=== PATIENT | male | born 1990 | race Caucasian/White ===

== ENCOUNTER 2017-05-21 16:39 | Emergency (ER) | payer SELFPAY ==
--- NOTE | 2017-05-22 02:19 | ED NURSING NOTES ---
Clinical Report - Nurses [facility] [address] [place] [address] 05/21/2017 16:38 [id number] Triage time 16:45 May 21 2017. Acuity: LEVEL 3. Chief Complaint: BIZARRE BEHAVIOR. Alert. [place] COMA SCORE: [place] Coma Scale: 15- eyes open spontaneously (4); best verbal response- oriented x 4 (5); best motor response- obeys commands (6). --17:15 Tim Good R.N. 16:45 05/21/17. BP: 136/73. HR: 124. RR: 28. O2 saturation: 97% on room air. Temp: 97.7 F. Pain level now unable to obtain due to patient condition. --17:15 Tim Good R.N. Weight: 86.1 kg estimated. Height/Length: 70 inches Estimated. BMI: 27.2. --17:14 Tim Good R.N. Medication/allergy information source: the patient. --17:15 Tim Good R.N. History ( Confusion and Agitation. Found by police walking along the [place]. Pt able to make verbal requests but is wildly gesticulating with his upper extremities. Both legs and lower arms are badly scratched by blackberry thorns. Police thought that he might have heat exhaustion.). Onset: today. He has had anxiety and has been confused. Has been feeling agitated. Treatment PROGRAM SUPPORT SPECIALIST: (Arrives in 4-point restraints by EMS). PAST MEDICAL HX: Psychiatric illness. Immunizations: status is unknown. SOCIAL HX: Smoker- current status unknown. No infectious disease exposure. FALL RISK ASSESSMENT: Fall risk assessment completed. No fall risk identified. NUTRITIONAL RISK ASSESSMENT: The nutritional risk assessment revealed no deficiencies. FUNCTIONAL ASSESSMENT: Functional assessment: no impairments noted. LEARNING NEEDS ASSESSMENT: The learning needs assessment revealed no barriers. SKIN INTEGRITY ASSESSMENT: Skin integrity risk assessment completed. No skin integrity risk identified. --17:15 Tim Good R.N. Interventions ID band on patient. To room. --17:15 Tim Good R.N. PHYSICAL ASSESSMENT To room via stretcher. GENERAL / NEURO / PSYCH: Alert. Patient's mood/affect appears angry. Behavior appears abnormal, including paranoid behaviors. He appears to have altered thought processes. Appears anxious, restless and agitated. Patient appears agitated. Patient appears unkempt. RESPIRATORY: Respirations not labored. CVS: Cardiac rhythm: sinus tachycardia. SKIN: Skin intact. Skin is warm and dry. Skin color is within normal limits. --17:17 Tim Good R.N. NURSING PROGRESS NOTES Blood samples drawn by lab. Reassurance given to the patient. Call light placed in reach. --17:18 Tim Good R.N. 17:15 05/21/17. ( CODE LABOY CALLED to keep pt in his room). --17:32 Tim Good R.N. <<STRICKEN ENTRY-- 17:17. ( Pt lock in his room. Hazrds removed). --17:33 Tim Good R.N. --END STRIKE>> Correction --17:33 Tim Good R.N. 1717. ( Pt locked in his room. Hazards removed). --17:34 Tim Good R.N. Care transferred and report received (from Tim Mosqueda, RN). --19:08 Nimo Gabriel R.N. 19:07 Tim PEREZ reports that pt has been in ed for a couple of hrs has had at least 5 cups of water and been reminded several times to provide urine sample, that we probably need to put pt in 4 points and obtain urine with a in and out cath. Went to talk to pt - 2 RN's and security standing by, and again reminded pt of the need for a sample - pt told me he could not do it in the room with the camera, informed him to steam and power superintendent the corner under the camera and that we would turn off the lights which we did. patient left in room. --20:11 Tim Ellis R.N. 19:15 Patient attempted to use urinal in 16 - no urine obtained, Informed Dr. Dasilva and asked if she was ok with pt going to the restroom, she agreed as long we stay with the patient and know we are getting a good sample. --20:14 Tim Ellis R.N. 19:32 Escorted patient to restroom with 3 RN's for patient to collect urine sample, I stood by in restroom - patient sat on toilet and pulled at his penis numerous times when asked what he was doing he stated " I need to get the ticks out ". Patient had a BM and with repeated reminders stood up and urinated into a urinal. --19:56 Tim Ellis R.N. 19:42 Patient escorted back to Room 16 door locked. --20:01 Tim Ellis R.N. 20:42. ( Patient was given juice, water, and snack. Patient appears confused, paranoid and agitated. He has flight of thought and is talking about bugs and bodies. Patient continues to decline providing his name and date because he states "they always call the police. I don't want anyone to assume anything about me and I'm done with the DOC."). --20:50 Nimo Gabriel R.N. ( patient pacing in room and talking to self. appears restless and confused.). --20:51 Nimo Gabriel R.N. 21:33. GENERAL / NEURO / PSYCH: The patient reports restlessness. The patient is disoriented. Patient appears agitated. RESPIRATORY: No respiratory distress. SKIN: Skin is warm and dry. Skin color within normal limits. ( patient given juice, water and blankets.). --22:09 Nimo Gabriel R.N. 21:37 05/21/17. HR: 114. RR: 24. O2 saturation: 100% on room air. Pain level now: 0/10. --22:10 Nimo Gabriel R.N. 00:06 05/22/17. GENERAL / NEURO / PSYCH: The patient reports restlessness. The patient is disoriented. RESPIRATORY: No respiratory distress. SKIN: Skin is warm and dry. Skin color within normal limits. ( patient given water.). --00:06 Nimo Gabriel R.N. GENERAL / NEURO / PSYCH: The patient reports restlessness. The patient is disoriented. RESPIRATORY: No respiratory distress. SKIN: Skin color within normal limits. ( Patient is asking if his family has left already. Patient's family has not been here during his stay, but patient reports he was talking to his "brotherHusam, a few minutes ago"). --01:26 Nimo Gabriel R.N. 02:12. ( Patient banging head against window in room. This RN called for help. Patient stopped banging head against wall once PD and staff arrived. This RN went to help another patient at that time, while staff and PD remained outside pt's room.). --06:58 Nimo Gabriel R.N. late entry - 22:26. GENERAL / NEURO / PSYCH: The patient reports restlessness. The patient is disoriented. RESPIRATORY: No respiratory distress. SKIN: Skin color within normal limits. ( patient given water). --01:38 Nimo Gabriel R.N. DISPOSITION / DISCHARGE 02:36. The patient was discharged by the physician. He was accompanied by a police escort. He left the Emergency Department via police department vehicle. --07:14 Nimo Gabriel R.N. 06:58 05/22/17. BP: unable to obtain due to patient condition. HR: unable to obtain due to patient condition. RR: unable to obtain due to patient condition. O2 saturation: unable to obtain due to patient condition. Temp: unable to obtain due to patient condition. Pain level now unable to obtain due to patient condition. --07:14 Nimo Gabriel R.N. Locked/Released at 05/22/2017 7:14 by Nimo Gabriel R.N.
--- NOTE | 2017-05-22 02:19 | ED ORDER SUMMARY ---
..... Patient: DAYAN SEVERINO OrderSheet [facility] VisitID: [id number] [place] [address] 26y, M Registration Date/Time: 05/21/2017 ORDER SHEET Weight: 86.1 kg (estimated) Allergies: GENERAL ORDERS: CBC w Diff Urgent (16:53 05/21/2017 Thiago WESTON) (Ack 16:54 MIGUELANGELoecheryl) (17:17 MIGUELANGELoerner) CMP Urgent (16:53 05/21/2017 Thiago WESTON) (Ack 16:54 Hannah) (17:17 MIGUELANGELoerner) TSH Urgent (16:53 05/21/2017 Thiago WESTON) (Ack 16:54 MIGUELANGELoezandraner) (17:17 MIGUELANGELoerner) Ethyl Alcohol Urgent (16:53 05/21/2017 Thiago WESTON) (Ack 16:54 MIGUELANGELoerner) (17:17 MIGUELANGELoerner) Urine Drug Screen Urgent (16:53 05/21/2017 Thiago WESTON) (Ack 16:54 Hannah) (20:14 FunmiQujodiy R.N.) MEDICATION ORDERS: IV FLUIDS: ORDER SHEET NOTES: [Electronically signed by Carlos Oneil Dr. (02:43 05/22/2017)] [Electronically signed by Nimo Gabriel R.N. (07:14 05/22/2017)] [Electronically locked/signed by Nimo Gabriel R.N. (07:14 05/22/2017)]
--- NOTE | 2017-05-22 02:19 | ED CLINICAL REPORT ---
Clinical Report - Physicians/Mid Levels [facility] [address] [place] [address] 05/21/2017 16:38 Patient: DAYAN SEVERINO Time Seen: 16:46. Arrived- By ambulance. Not in custody. Historian- patient and EMS personnel. History limited by psychosis. Physical Exam limited by psychosis. HISTORY OF PRESENT ILLNESS Chief Complaint: AGITATED and PARANOID. This started unknown duration; medics were called as patient was wandering around the streets acting bizarrely and agitated. The patient was found wandering. Has been paranoid but eating or sleeping and not been depressed. No anxiety, anger, unusual behavior, delusions or suicidal thoughts. No self-injury inflicted or hallucinations. The symptoms are described as moderate. Location- (patient has sustained scratches all over his extremities and forehead, but cannot say how or why). Similar symptoms previously: None. Recent medical care: Not recently seen/assessed. REVIEW OF SYSTEMS No headache, dizziness, weakness, chest pain or palpitations. No abdominal pain, vomiting, diarrhea, black stools or numbness. No fever, sore throat, cough, difficulty breathing or urinary frequency. No skin rash, enlarged lymph nodes, joint pain or laceration. All systems otherwise negative, except as recorded above. PAST HISTORY ( Psychiatric illness). SOCIAL HISTORY Smoker - current status unknown. ADDITIONAL NOTES The nursing notes have been reviewed. PHYSICAL EXAM Vital Signs: 05/21/2017 16:45 BP: 136/73. HR: 124. RR: 28. O2 saturation: 97%. Temp: 97.7 F. Have been reviewed. Blood pressure normal. Tachycardic. Tachypneic. Temperature normal. Oxygen saturation normal. Appearance: Alert. No acute distress. Is disheveled and has poor hygiene. (Patient is agitated and is fixated on the one-way glass window in his room. He states "I don't want to say too much" when I ask him questions). Eyes: Pupils equal, round and reactive to light. Neck: Normal inspection. CVS: Normal heart rate and rhythm. Heart sounds normal. Respiratory: Breath sounds normal. Chest nontender. Abdomen: Soft and nontender. Back: No tenderness. Skin: Skin warm and dry. Normal skin color. Normal skin turgor. Extremities: Extremities exhibit normal ROM. No lower extremity edema. Psych / Neuro: The patient seems unconcerned about his current condition. Cranial nerves normal (as tested). No cerebellar findings. No motor deficit. No sensory deficit. (Patient is agitated and reluctant to answer questions.). LABS, X-RAYS, AND EKG Laboratory Tests: CBC w Diff: (GREGG: 05/21/2017 17:00) ( [facility] 17:16) Final results Test Result Flag Units (Reference) WHITE BLOOD COUNT 7.8 K/uL (4.5-11.5) RED BLOOD COUNT 4.39 L M/uL (4.50-5.90) HEMOGLOBIN 13.5 gm/dL (13.5-17.5) HEMATOCRIT 39.4 L % (41.0-53.0) MEAN CELL VOLUME 90 fL (80-100) MEAN CORPUSCULAR HGB 31 pg (26-34) MEAN CORPUSCULAR HGB CONC 34 g/dL (31-37) RED CELL DISTRIBUTION WIDTH 13.0 % (11.6-14.8) PLATELET COUNT 230 K/uL (150-400) NEUTROPHIL % 73.3 % (50-75) LYMPH % 16.5 L % (25-40) MONO % 9.8 % (3-14) EOSINOPHIL % 0.1 % (0-4) BASOPHIL % 0.3 % (0-2) Urine Drug Screen: (GREGG: 05/21/2017 19:40) ( [facility] 05/21/2017 20:10) Final results Test Result Flag Units (Reference) AMPHETAMINE/METHAMPHETAMINE POSITIVE H (NEGATIVE) BARBITURATE NEGATIVE (NEGATIVE) BENZODIAZEPINE NEGATIVE (NEGATIVE) CANNABINOID POSITIVE H (NEGATIVE) COCAINE NEGATIVE (NEGATIVE) ECSTASY POSITIVE H (NEGATIVE) METHADONE NEGATIVE (NEGATIVE) OPIATE NEGATIVE (NEGATIVE) The urine drug screen is a qualitative screening test fordrug overdose and abuse. All screen results should beconsidered as presumptive.Drugs screened for are as follows:BenzodiazepinesCocaineAmphetamines/MetamphetaminesTHC (Tetrahydrocannabinol)OpiatesBarbituratesEcstasyMethadonePositive results are unconfirmed. For confirmation, notifythe lab for the specimen to be sent to the reference lab.All confirmations must be performed by a differentmethodology.The ingestion of natural herbal and plant productscontaining Ephedra/Ephedra metabolites can produce in urineone or more substances capable of cross reacting withamphetamine/methamphetamine immunoassays. These testsprovide a preliminary result only. A more specificalternative chemical method must be used to obtain aconfirmed analytical result. CMP: (GREGG: 05/21/2017 17:00) ( MsgRcvd 05/21/2017 17:57) Final results Test Result Flag Units (Reference) GLUCOSE 113 H mg/dL (70-110) BUN 23 H mg/dL (7-18) CREATININE 1.3 mg/dL (0.6-1.3) Estimated GFR >60 mL/min Estimated GFR- >60 mL/min Note: Persistent reduction over 3 months in eGFR<60 mL/min/1.73 m2 defines CKD. Patients with eGFR values>=60 mL/min/1.73 m2 may also have CKD if evidence ofpersistent proteinuria. Additional information may be foundat www.kidney.org. SODIUM 148 H mmol/L (136-145) POTASSIUM 4.1 mmol/L (3.5-5.1) CHLORIDE 109 H mmol/L (98-107) CARBON DIOXIDE 26 mmol/L (21-32) CALCIUM 9.8 mg/dL (8.5-10.1) TOTAL PROTEIN 8.4 H g/dL (6.4-8.2) ALBUMIN 4.3 g/dL (3.3-5.0) BILIRUBIN, TOTAL 1.2 H mg/dL (0.0-1.0) ALKALINE PHOSPHATASE 59 U/L (46-116) AST (SGOT) 148 H U/L (15-37) ALT (SGPT) 85 H U/L (12-78) THYROID STIMULATING HORMONE 1.946 uIU/mL (0.34-3.74) ETHYL ALCOHOL <3 L mg/dL (3-10) . Pulse Oximetry: 05/21/2017 16:45 O2 saturation: 97%. (FIO2 - room air). Interpretation: normal. PROGRESS AND PROCEDURES Course of Care: PAT evaluated pt and cleared him from a psychiatric standpoint. Per his GM, he has a felony warrant in [facility] and is clear to book. Disposition: Discharged to half-way in good condition. Condition: good. CLINICAL IMPRESSION Substance abuse- methamphetamines with intoxication and drug induced psychotic disorder. INSTRUCTIONS (Clear to book). Follow-up: Follow up with your doctor as needed. Screening today revealed the patient's blood pressure to be in the pre-hypertensive range. The patient should follow up with a primary care provider for blood pressure management. (Electronically signed by Carlos Oneil Dr. 05/22/2017 2:43)
--- NOTE | 2017-05-22 02:19 | ED CLINICAL REPORT ---
Clinical Report - Physicians/Mid Levels [facility] [address] [place] [address] 05/21/2017 16:38 Patient: DAYAN SEVERINO Time Seen: 16:46. Arrived- By ambulance. Not in custody. Historian- patient and EMS personnel. History limited by psychosis. Physical Exam limited by psychosis. HISTORY OF PRESENT ILLNESS Chief Complaint: AGITATED and PARANOID. This started unknown duration; medics were called as patient was wandering around the streets acting bizarrely and agitated. The patient was found wandering. Has been paranoid but eating or sleeping and not been depressed. No anxiety, anger, unusual behavior, delusions or suicidal thoughts. No self-injury inflicted or hallucinations. The symptoms are described as moderate. Location- (patient has sustained scratches all over his extremities and forehead, but cannot say how or why). Similar symptoms previously: None. Recent medical care: Not recently seen/assessed. REVIEW OF SYSTEMS No headache, dizziness, weakness, chest pain or palpitations. No abdominal pain, vomiting, diarrhea, black stools or numbness. No fever, sore throat, cough, difficulty breathing or urinary frequency. No skin rash, enlarged lymph nodes, joint pain or laceration. All systems otherwise negative, except as recorded above. PAST HISTORY ( Psychiatric illness). SOCIAL HISTORY Smoker - current status unknown. ADDITIONAL NOTES The nursing notes have been reviewed. PHYSICAL EXAM Vital Signs: 05/21/2017 16:45 BP: 136/73. HR: 124. RR: 28. O2 saturation: 97%. Temp: 97.7 F. Have been reviewed. Blood pressure normal. Tachycardic. Tachypneic. Temperature normal. Oxygen saturation normal. Appearance: Alert. No acute distress. Is disheveled and has poor hygiene. (Patient is agitated and is fixated on the one-way glass window in his room. He states "I don't want to say too much" when I ask him questions). Eyes: Pupils equal, round and reactive to light. Neck: Normal inspection. CVS: Normal heart rate and rhythm. Heart sounds normal. Respiratory: Breath sounds normal. Chest nontender. Abdomen: Soft and nontender. Back: No tenderness. Skin: Skin warm and dry. Normal skin color. Normal skin turgor. Extremities: Extremities exhibit normal ROM. No lower extremity edema. Psych / Neuro: The patient seems unconcerned about his current condition. Cranial nerves normal (as tested). No cerebellar findings. No motor deficit. No sensory deficit. (Patient is agitated and reluctant to answer questions.). LABS, X-RAYS, AND EKG Laboratory Tests: CBC w Diff: (GREGG: 05/21/2017 17:00) ( [facility] 05/21/2017 17:16) Final results Test Result Flag Units (Reference) WHITE BLOOD COUNT 7.8 K/uL (4.5-11.5) RED BLOOD COUNT 4.39 L M/uL (4.50-5.90) HEMOGLOBIN 13.5 gm/dL (13.5-17.5) HEMATOCRIT 39.4 L % (41.0-53.0) MEAN CELL VOLUME 90 fL (80-100) MEAN CORPUSCULAR HGB 31 pg (26-34) MEAN CORPUSCULAR HGB CONC 34 g/dL (31-37) RED CELL DISTRIBUTION WIDTH 13.0 % (11.6-14.8) PLATELET COUNT 230 K/uL (150-400) NEUTROPHIL % 73.3 % (50-75) LYMPH % 16.5 L % (25-40) MONO % 9.8 % (3-14) EOSINOPHIL % 0.1 % (0-4) BASOPHIL % 0.3 % (0-2) Urine Drug Screen: (GREGG: 05/21/2017 19:40) ( [facility] 05/21/2017 20:10) Final results Test Result Flag Units (Reference) AMPHETAMINE/METHAMPHETAMINE POSITIVE H (NEGATIVE) BARBITURATE NEGATIVE (NEGATIVE) BENZODIAZEPINE NEGATIVE (NEGATIVE) CANNABINOID POSITIVE H (NEGATIVE) COCAINE NEGATIVE (NEGATIVE) ECSTASY POSITIVE H (NEGATIVE) METHADONE NEGATIVE (NEGATIVE) OPIATE NEGATIVE (NEGATIVE) The urine drug screen is a qualitative screening test fordrug overdose and abuse. All screen results should beconsidered as presumptive.Drugs screened for are as follows:BenzodiazepinesCocaineAmphetamines/MetamphetaminesTHC (Tetrahydrocannabinol)OpiatesBarbituratesEcstasyMethadonePositive results are unconfirmed. For confirmation, notifythe lab for the specimen to be sent to the reference lab.All confirmations must be performed by a differentmethodology.The ingestion of natural herbal and plant productscontaining Ephedra/Ephedra metabolites can produce in urineone or more substances capable of cross reacting withamphetamine/methamphetamine immunoassays. These testsprovide a preliminary result only. A more specificalternative chemical method must be used to obtain aconfirmed analytical result. CMP: (GREGG: 05/21/2017 17:00) ( MsgRcvd 05/21/2017 17:57) Final results Test Result Flag Units (Reference) GLUCOSE 113 H mg/dL (70-110) BUN 23 H mg/dL (7-18) CREATININE 1.3 mg/dL (0.6-1.3) Estimated GFR >60 mL/min Estimated GFR- >60 mL/min Note: Persistent reduction over 3 months in eGFR<60 mL/min/1.73 m2 defines CKD. Patients with eGFR values>=60 mL/min/1.73 m2 may also have CKD if evidence ofpersistent proteinuria. Additional information may be foundat www.kidney.org. SODIUM 148 H mmol/L (136-145) POTASSIUM 4.1 mmol/L (3.5-5.1) CHLORIDE 109 H mmol/L (98-107) CARBON DIOXIDE 26 mmol/L (21-32) CALCIUM 9.8 mg/dL (8.5-10.1) TOTAL PROTEIN 8.4 H g/dL (6.4-8.2) ALBUMIN 4.3 g/dL (3.3-5.0) BILIRUBIN, TOTAL 1.2 H mg/dL (0.0-1.0) ALKALINE PHOSPHATASE 59 U/L (46-116) AST (SGOT) 148 H U/L (15-37) ALT (SGPT) 85 H U/L (12-78) THYROID STIMULATING HORMONE 1.946 uIU/mL (0.34-3.74) ETHYL ALCOHOL <3 L mg/dL (3-10) . Pulse Oximetry: 05/21/2017 16:45 O2 saturation: 97%. (FIO2 - room air). Interpretation: normal. PROGRESS AND PROCEDURES Course of Care: PAT evaluated pt and cleared him from a psychiatric standpoint. Per his GM, he has a felony warrant in [facility] and is clear to book. Disposition: Discharged to residential in good condition. Condition: good. CLINICAL IMPRESSION Substance abuse- methamphetamines with intoxication and drug induced psychotic disorder. INSTRUCTIONS (Clear to book). Follow-up: Follow up with your doctor as needed. Screening today revealed the patient's blood pressure to be in the pre-hypertensive range. The patient should follow up with a primary care provider for blood pressure management. (Electronically signed by Carlos Oneil Dr. 05/22/2017 2:43)
--- NOTE | 2017-05-22 02:19 | ED ORDER SUMMARY ---
..... Patient: DAYAN SEVERINO OrderSheet [facility] VisitID: [id number] [place] [address] 26y, M Registration Date/Time: 05/21/2017 ORDER SHEET Weight: 86.1 kg (estimated) Allergies: GENERAL ORDERS: CBC w Diff Urgent (16:53 05/21/2017 Thiago WESTON) (Ack 16:54 MIGUELANGELoecheryl) (17:17 MIGUELANGELoerner) CMP Urgent (16:53 05/21/2017 Thiago WESTON) (Ack 16:54 Hannah) (17:17 MIGUELANGELoerner) TSH Urgent (16:53 05/21/2017 Thiago WESTON) (Ack 16:54 MIGUELANGELoezandraner) (17:17 MIGUELANGELoerner) Ethyl Alcohol Urgent (16:53 05/21/2017 Thiago WESTON) (Ack 16:54 MIGUELANGELoerner) (17:17 MIGUELANGELoerner) Urine Drug Screen Urgent (16:53 05/21/2017 Thiago WESTON) (Ack 16:54 Hannah) (20:14 FunmiQujodiy R.N.) MEDICATION ORDERS: IV FLUIDS: ORDER SHEET NOTES: [Electronically signed by Carlos Oneil Dr. (02:43 05/22/2017)] [Electronically signed by Nimo Gabriel R.N. (07:14 05/22/2017)] [Electronically locked/signed by Nimo Gabriel R.N. (07:14 05/22/2017)]
--- NOTE | 2017-05-22 07:14 | ED MED RECONCILIATION SUMMARY ---
Patient: MEREELAINADAYAN Edd Medication Reconciliation Report [facility] VisitID: [id number] [address] [place] [address] 26y, M Registration Date/Time: 05/21/2017 Weight: 86.1 kg Height/Length: 70 in. BMI: 27.2 ALLERGIES: The patient's Home Medications are listed below: Not obtained. The source(s) of the original Home Medication information: patient The following Medications were given to the patient in the Emergency Department: None. The following Medications were prescribed to the patient: None.
--- NOTE | 2017-05-22 07:14 | ED MED RECONCILIATION SUMMARY ---
Patient: MEREELAINADAYAN Edd Medication Reconciliation Report [facility] VisitID: [id number] [address] [place] [address] 26y, M Registration Date/Time: 05/21/2017 Weight: 86.1 kg Height/Length: 70 in. BMI: 27.2 ALLERGIES: The patient's Home Medications are listed below: Not obtained. The source(s) of the original Home Medication information: patient The following Medications were given to the patient in the Emergency Department: None. The following Medications were prescribed to the patient: None.
--- NOTE | 2017-05-22 07:14 | ED MAR SUMMARY ---
..... Medication Administration Record [facility] [address] [place], [place] [id number] Patient: DAYAN SEVERINO Visit ID: [id number] 26y, M Weight: 86.1 kg Height/Length: 70 in BMI: 27.2 ALLERGIES:
--- NOTE | 2017-05-22 07:14 | ED MAR SUMMARY ---
..... Medication Administration Record [facility] [address] [place], [place] [id number] Patient: DAYAN SEVERINO Visit ID: [id number] 26y, M Weight: 86.1 kg Height/Length: 70 in BMI: 27.2 ALLERGIES:
--- NOTE | 2017-05-22 07:14 | ED DISCHARGE INSTRUCTIONS ---
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 INSTRUCTIONS (Clear to book). Follow-up: Follow up with your doctor as needed. Screening today revealed the patient's blood pressure to be in the pre-hypertensive range. The patient should follow up with a primary care provider for blood pressure management. (Electronically signed by Carlos Oneil Dr. 05/22/2017 2:43)
--- NOTE | 2017-05-22 07:14 | ED DISCHARGE INSTRUCTIONS ---
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 INSTRUCTIONS (Clear to book). Follow-up: Follow up with your doctor as needed. Screening today revealed the patient's blood pressure to be in the pre-hypertensive range. The patient should follow up with a primary care provider for blood pressure management. (Electronically signed by Carlos Oneil Dr. 05/22/2017 2:43)
== END 2017-05-22 02:34 ==
LOC: ED SRH 16:39 → EDBD 16:39 → ED SRH 05-22 02:34
DX: F15.159 Other stimulant abuse with stimulant-induced psychotic disorder, unspecified (principal); F15.129 Other stimulant abuse with intoxication, unspecified
CPT/HCPCS: 90100; 92010; 92760; 92761; 92762; 92763; 92764; 92765; 92766; 92767; 93140; 95059